=== PATIENT | female | born 1970 | race American Indian/Alaskan Native ===

== ENCOUNTER 2017-06-28 01:19 | Emergency (ER) | payer SELFPAY ==
[2017-06-28 01:32] VITALS: RESP 20; TEMP 98.5
[2017-06-28] MEDS ORDERED: Sodium Chloride 0.9% 500 ML IV ONE (01:56)
[2017-06-28] MEDS ORDERED: Sodium Chloride 0.9% 1,000 ML ONE (02:06)
[2017-06-28 02:51] LABS: BASO # 0.1 K/uL (0.0-0.2); BASO % 0.8 % (0.0-2.0); EOS # 0.1 K/uL (0.0-0.7); HEMATOCRIT 36.3 % (34.0-47.0); LYMPH # 1.1 K/uL (1.0-4.3); LYMPH % 14.3 % (20.0-40.0); MEAN CELL VOLUME 82.7 fL (81.0-99.0); MEAN CORPUSCULAR HEMOGLOBIN 27.4 pg (27.0-31.0); MEAN CORPUSCULAR HGB CONC 33.2 g/dL (33.0-37.0); MEAN PLATELET VOLUME 7.8 fL (7.2-11.7); MONO # 0.6 K/uL (0.0-0.8); MONO % 8.7 % (0.0-10.0); RED CELL DISTRIBUTION WIDTH 13.1 % (11.5-14.5); WHITE BLOOD COUNT 7.5 K/uL (4.8-10.8)
[2017-06-28 03:00] LABS: CHLORIDE 101 mmol/L (98-107); POTASSIUM 3.1 mmol/L (3.6-5.2); SODIUM 137 mmol/L (132-148)
[2017-06-28 03:03] LABS: ALB/GLOB RATIO 1.1 (1.0-2.1); ALKALINE PHOSPHATASE 69 U/L (38-126); ALT/SGPT 62 U/L (9-52); AST/SGOT 47 U/L (14-36); BILIRUBIN,TOTAL 0.5 mg/dL (0.2-1.3); BLOOD UREA NITROGEN 6 mg/dL (7-17); CALCIUM 8.6 mg/dl (8.6-10.4); CARBON DIOXIDE 22 mmol/L (22-30); GFR AFRICAN-AMERICAN > 60; GLUCOSE,RANDOM 182 mg/dL (65-105); TOTAL PROTEIN 7.5 g/dL (6.3-8.3)
[2017-06-28] MEDS ORDERED: Potassium Chloride 20 mEq ER Tab PO STA (03:20)
--- NOTE | 2017-06-28 03:38 | C.PDOC ---
History Of Present Illness 47 y/o female presents to the ER with postprandial epigastric discomfort. Pt states that pain started after eating 2 sandwiches in the evening. Patient reports feeling nauseous and taking 1 tab of Omeprazole, but right after felt anxious with palpitations. Denies dizziness, chest pain, SOB, fever, chills, or any other complaints. Patient reports being on the road a lot and developed poor eating habit. Pt symptoms improved after 1 she had one bowel movement last night with improvements of pain. Time Seen by Provider: 06/28/17 01:36 Chief Complaint (Nursing): Palpitations History Per: Patient History/Exam Limitations: no limitations Onset/Duration Of Symptoms: Hrs (few hours [employer], last night) Current Symptoms Are (Timing): Still Present Context: Food Severity: Mild Location Of Pain/Discomfort: Epigastric Radiation Of Pain To:: None Quality Of Discomfort: "Pain" Associated Symptoms: Nausea. denies: Fever, Chills Alleviating Factors: Other (Bowel movement) Recent travel outside of the [place]: No Additional History Per: Patient Past Medical History Reviewed: Historical Data, Nursing Documentation, Vital Signs Vital Signs: Last Vital Signs Temp 98.5 F 06/28/17 05:15 Pulse 94 H 06/28/17 05:15 Resp 20 06/28/17 05:15 BP 119/74 06/28/17 05:15 Pulse Ox 100 06/28/17 05:23 - Medical History PMH: HTN Family History: States: Unknown Family Hx - Social History Hx Alcohol Use: No Hx Substance Use: No - Immunization History Hx Tetanus Toxoid Vaccination: No Hx Influenza Vaccination: No Hx Pneumococcal Vaccination: No Review Of Systems Except As Marked, All Systems Reviewed And Found Negative. Constitutional: Negative for: Fever, Chills Cardiovascular: Positive for: Palpitations. Negative for: Chest Pain Respiratory: Negative for: Shortness of Breath Gastrointestinal: Positive for: Nausea, Abdominal Pain Neurological: Negative for: Dizziness Psych: Positive for: Anxiety Physical Exam - Physical Exam Appears: Non-toxic, No Acute Distress Skin: Warm, Dry Cardiovascular: Rhythm Regular Respiratory: Normal Breath Sounds, No Rales, No Rhonchi, No Wheezing Gastrointestinal/Abdominal: Bowel Sounds (Normal), Soft, Tenderness (Minimal epigastric tenderness), No Guarding, No Rebound Back: Normal Inspection, No CVA Tenderness Neurological/Psych: Oriented x3 Gait: Steady ED Course And Treatment - Laboratory Results Result Diagrams: 06/28/17 02:20 06/28/17 02:20 ECG: Interpreted By Me, Viewed By Me ECG Rhythm: Sinus Rhythm ECG Interpretation: Normal Rate From EC O2 Sat by Pulse Oximetry: 100 (RA) Pulse Ox Interpretation: Normal - Other Rad XRAY Abdomen X-Ray: Interpreted by Me, Viewed By Me Interpretation: Some stool in the abdomen, otherwise normal. Progress Note: Plans: Blood work up, IV fluids, Pepcid, Zofran, XRAY abdomen. Labs reviewed, low K+ and potassium ordered. Patient is in no acute distress, Abd soft NT, pt with HR 103, and is tolerating PO. Patient is requesting to leave with her brother. Pt was instructed to follow up with PMD for further evaluations and to return if symptoms worsens. Disposition Counseled Patient/Family Regarding: Diagnosis, Need For Followup, Rx Given - Disposition Referrals: Swapnil English MD [Medical Doctor] - Disposition: HOME/ ROUTINE Disposition Time: 05:19 Condition: STABLE Additional Instructions: Avoid greasy, fried foods , caffeine, soda, alcohol Follow up with PMD High fiber diet Return to ER if worse Prescriptions: Docusate Sodium [Colace] 100 mg PO TID #30 capsule Ranitidine HCl [Zantac] 150 mg PO BID #30 tablet Instructions: Epigastric Pain (ED) Forms: [facility] (Spanish) - Clinical Impression Clinical Impression: Epigastric abdominal pain, Palpitations - Scribe Statement The provider has reviewed the documentation as recorded by the Scribandry romero All medical record entries made by the Scribe were at my direction and personally dictated by me. I have reviewed the chart and agree that the record accurately reflects my personal performance of the history, physical exam, medical decision making, and the department course for this patient. I have also personally directed, reviewed, and agree with the discharge instructions and disposition.
[2017-06-28] MEDS ORDERED: Potassium Chloride 20 mEq ER Tab PO ONE (03:58)
[2017-06-28 05:16] VITALS: BP 119/74; PULSE 94
[2017-06-28 05:17] VITALS: O2SAT 100
--- NOTE | 2017-06-28 08:24 | RAD ---
PROCEDURE: Radiographs of the chest and abdomen (obstructive series) HISTORY: abd pain COMPARISON: No prior. TECHNIQUE: AP radiograph of the chest, with upright and supine radiographs of the abdomen. FINDINGS: CHEST: Lungs: Clear. Cardiovascular: Normal size heart. No pulmonary vascular congestion. Pleura: No pleural fluid. No pneumothorax. Other findings: None. ABDOMEN AND PELVIS: Bowel: Unremarkable bowel gas pattern. No evidence of mechanical obstruction. Free air: None. Bones: Unremarkable. Other findings: Surgical clips identified in the right upper quadrant may indicate prior cholecystectomy. Clinically correlate. IMPRESSION: Unremarkable radiographs of chest. Surgical clips in the right upper quadrant may indicate prior cholecystectomy. Clinically correlate. . No evidence of mechanical bowel obstruction.
--- NOTE | 2017-06-28 12:17 | CARD ---
APPROVED REPORT EKG Measurement Heart [id number] <Conclusion> Sinus tachycardia Otherwise normal ECG
== END 2017-06-28 05:31 | disposition home or self-care (01) ==
LOC: C.ER 01:19
DX: R00.2 Palpitations (principal); R10.13 Epigastric pain
CPT/HCPCS: 74022; 80053; 83690; 84443; 85025; 93005; 96361; 96374; 96375; 99285; J2405; J7040

== ENCOUNTER 2017-07-11 02:41 | Emergency (ER) | payer SELFPAY ==
[2017-07-11 02:59] VITALS: RESP 20; TEMP 97.7; O2SAT 99
[2017-07-11] MEDS ORDERED: Sucralfate 1 gm/10 ml Oral Susp UD PO STA (03:10)
--- NOTE | 2017-07-11 03:16 | C.PDOC ---
History Of Present Illness 47 y/o female c/o epigastric discomfort and abdominal distention that began tonight. Denies definite pain, fever, chills, diarrhea, or vomiting. No chest pain or SOB. Patient notes having a similar episode 10 days ago and was given a prescription of Zantac, but has stop taking it. Time Seen by Provider: 07/11/17 03:15 Chief Complaint (Nursing): Abdominal Pain History Per: Patient History/Exam Limitations: no limitations Onset/Duration Of Symptoms: Hrs Current Symptoms Are (Timing): Still Present Severity: Mild Location Of Pain/Discomfort: Epigastric Radiation Of Pain To:: None Quality Of Discomfort: denies: "Pain" Associated Symptoms: denies: Fever, Chills, Vomiting, Diarrhea Exacerbating Factors: None Alleviating Factors: None Additional History Per: Patient Past Medical History Reviewed: Historical Data, Nursing Documentation, Vital Signs Vital Signs: Last Vital Signs Temp 97.7 F 07/11/17 02:52 Pulse 106 H 07/11/17 02:52 Resp 20 07/11/17 02:52 BP 147/74 07/11/17 02:52 Pulse Ox 99 07/11/17 03:19 - Medical History PMH: HTN Surgical History: Cholecystectomy Family History: States: Unknown Family Hx - Social History Hx Alcohol Use: No Hx Substance Use: No - Immunization History Hx Tetanus Toxoid Vaccination: No Hx Influenza Vaccination: No Hx Pneumococcal Vaccination: No Review Of Systems Except As Marked, All Systems Reviewed And Found Negative. Constitutional: Negative for: Fever, Chills Cardiovascular: Negative for: Chest Pain Respiratory: Negative for: Shortness of Breath Gastrointestinal: Positive for: Other (Epigastric discomfort and abdomen distention). Negative for: Vomiting, Abdominal Pain (No definite pain), Diarrhea Physical Exam - Physical Exam Appears: Non-toxic, No Acute Distress Skin: Warm, Dry Head: Atraumatic, Normacephalic Cardiovascular: Rhythm Regular, No Murmur Respiratory: Normal Breath Sounds, No Rales, No Rhonchi, No Wheezing Gastrointestinal/Abdominal: Soft, Tenderness (Mild epigastric tenderness), No Guarding, No Rebound Back: Normal Inspection, No CVA Tenderness Neurological/Psych: Oriented x3, Normal Speech, Normal Cognition Gait: Steady ED Course And Treatment - Laboratory Results Result Diagrams: 07/11/17 03:32 07/11/17 03:32 O2 Sat by Pulse Oximetry: 99 (RA) Pulse Ox Interpretation: Normal Medical Decision Making Medical Decision Making: Impression: * Epigastric discomfort and abdominal distention that began tonight. Plans: * Blood labs * IV fluids * UA * Bentyl * Pepcid * Carafate Disposition Counseled Patient/Family Regarding: Diagnosis - Disposition Referrals: [facility] [Outside] Disposition: HOME/ ROUTINE Disposition Time: 04:09 Condition: STABLE Prescriptions: Famotidine [Pepcid] 20 mg PO BID #30 tab Potassium Chloride [K-Tab ER] 10 meq PO DAILY #14 tablet.er Sucralfate [Carafate] 1 gm PO BID #14 tab Instructions: Gastritis (GEN), Diet for Ulcers and Gastritis (GEN), Hypokalemia (DC), Diabetic Hyperglycemia (ED) Forms: [facility] (Albanian) - POA Present On Arrival: None - Clinical Impression Clinical Impression: Epigastric discomfort, Gastritis, Hyperglycemia, Hypokalemia - Scribe Statement The provider has reviewed the documentation as recorded by the Ramilaibandry romero All medical record entries made by the Ramilaibandry were at my direction and personally dictated by me. I have reviewed the chart and agree that the record accurately reflects my personal performance of the history, physical exam, medical decision making, and the department course for this patient. I have also personally directed, reviewed, and agree with the discharge instructions and disposition.
[2017-07-11 03:20] LABS: RBC URINE < 1 /hpf (0-3); URINE BILIRUBIN NEGATIVE (NEGATIVE); URINE BLOOD NEGATIVE (NEGATIVE); URINE COLOR Yellow (YELLOW); URINE GLUCOSE (UA) 3+ mg/dL (Normal); URINE KETONE NEGATIVE (NEGATIVE); URINE LEUKOCYTE ESTERASE NEG Leu/uL (Negative); URINE PROTEIN NEGATIVE (NEGATIVE); URINE UROBILINOGEN NORMAL mg/dL (0.2-1.0)
[2017-07-11 03:38] LABS: BASO % 0.6 % (0.0-2.0); EOS % 0.7 % (0.0-4.0); HEMATOCRIT 34.9 % (34.0-47.0); LYMPH # 0.9 K/uL (1.0-4.3); LYMPH % 13.5 % (20.0-40.0); MEAN CELL VOLUME 83.3 fL (81.0-99.0); MEAN CORPUSCULAR HEMOGLOBIN 28.1 pg (27.0-31.0); MEAN CORPUSCULAR HGB CONC 33.7 g/dL (33.0-37.0); MEAN PLATELET VOLUME 7.9 fL (7.2-11.7); MONO # 0.5 K/uL (0.0-0.8); MONO % 6.7 % (0.0-10.0); NRBC % 0.1 % (0.0-2.0); RED CELL DISTRIBUTION WIDTH 13.2 % (11.5-14.5); WHITE BLOOD COUNT 6.8 K/uL (4.8-10.8)
[2017-07-11 03:56] LABS: CHLORIDE 95 mmol/L (98-107); POTASSIUM 2.9 mmol/L (3.6-5.2); SODIUM 134 mmol/L (132-148)
[2017-07-11 03:58] LABS: AST/SGOT 46 U/L (14-36); BILIRUBIN,TOTAL 0.3 mg/dL (0.2-1.3); CARBON DIOXIDE 24 mmol/L (22-30); GFR AFRICAN-AMERICAN > 60
[2017-07-11 03:59] LABS: ALKALINE PHOSPHATASE 61 U/L (38-126); ALT/SGPT 63 U/L (9-52); BLOOD UREA NITROGEN 8 mg/dL (7-17); CALCIUM 8.6 mg/dl (8.6-10.4); GLUCOSE,RANDOM 244 mg/dL (65-105); TOTAL PROTEIN 7.2 g/dL (6.3-8.3)
[2017-07-11] MEDS ORDERED: Potassium Chloride 20 mEq ER Tab PO STA (04:07)
[2017-07-11] MEDS ORDERED: Potassium Chloride 20 mEq ER Tab PO ONE (04:12)
[2017-07-11 04:29] VITALS: BP 132/78; PULSE 85
== END 2017-07-11 04:29 | disposition home or self-care (01) ==
LOC: C.ER 02:41
DX: K29.70 Gastritis, unspecified, without bleeding (principal); R73.9 Hyperglycemia, unspecified; E87.6 Hypokalemia; R10.13 Epigastric pain
CPT/HCPCS: 80053; 81001; 83690; 84703; 85025; 96372; 96374; 99284; J0500

== ENCOUNTER 2017-09-09 09:48 | Day surgery (SDC) | payer OTHER ==
[2017-08-08 11:55] VITALS: BMI 34.3
[2017-09-09 10:28] VITALS: RESP 18; O2SAT 100
--- NOTE | 2017-09-09 11:54 | CP.SDSHP ---
Same Day Surgery H & P - History Proposed Procedure: US guided FNA of left thyroid nodule Pre-Op Diagnosis: Thyroid nodule - Allergies Allergies: Allergies No Known Allergies Allergy (Verified 07/11/17 02:59) - Physical Exam Vital Signs: Vital Signs 09/09/17 10:17 Temperature 98.1 F Pulse Rate 90 Respiratory 18 Rate Blood Pressure 152/90 H O2 Sat by Pulse 100 Oximetry Mental Status: Alert & Oriented x3 Neuro: WNL Heart: WNL Lungs: WNL - Impression Impression: Pt with a 1.4 cm left thyroid nodule. Plan US guided FNA. Pt. Evaluated Today:Candidate for Anesthesia & Procedure: No Short Stay Discharge - Short Stay Discharge Admitting Diagnosis/Reason for Visit: THYROID NODULE Disposition: HOME/ ROUTINE
--- NOTE | 2017-09-09 11:55 | PCM.SURG1 ---
Surgeon's Initial Post Op Note - Surgeon's Notes Surgeon: Shilo Palacios MD Lead Based Paint Technician: NONE Type of Anesthesia: Local Pre-Operative Diagnosis: left thyroid nodule Operative Findings: US shows a 1.4 cm left thyroid nodule Post-Operative Diagnosis: left thyroid nodule Operation Performed: US guided FNA Specimen/Specimens Removed: 25 g FNA x 4 passes Estimated Blood Loss: EBL {In ML}: 0 Blood Products Given: N/A Drains Used: No Drains Post-Op Condition: Good Date of Surgery/Procedure: 09/09/17 Time of Surgery/Procedure: 11:50
[2017-09-09 12:15] VITALS: BP 134/70; PULSE 74; TEMP 98
--- NOTE | 2017-09-10 12:26 | US ---
PROCEDURE: Date of Procedure: 09/09/2017 PROCEDURE: 1. Ultrasound guided FNA of left thyroid nodule, CPT 71417 2. Ultrasound guidance for FNA, [address]4614 Medications: 1% Lidocaine HISTORY: Enlarged left thyroid nodule. TECHNIQUE: Following informed consent and procedure time-out, a limited ultrasound patient's neck confirmed the presence of a 1.4 cmleft thyroid nodule which is predominantly cystic. After the patient's neck was prepped and draped in the usual sterile fashion, the skin was anesthetized with 1% lidocaine. Ultrasound-guided fine needle aspiration was then performed of the dominant left thyroid nodule. A total of 4 passes were made into the nodule with 25 gauge needle under ultrasound guidance. The FNA specimen was sent for routine pathology. Post biopsy ultrasound showed no hematoma. IMPRESSION: Ultrasound-guided FNA of the dominant left thyroid nodule.
== END 2017-09-09 12:28 | disposition home or self-care (01) ==
LOC: C.SPRAD 09:48
PROVIDERS: ATTEND Radiology Vascular & Interventional Radiology
DX: E04.1 Nontoxic single thyroid nodule (principal)

== ENCOUNTER 2018-11-13 09:55 | Outpatient (CLI) | payer OTHER | END 2018-11-13 09:56 | disposition home or self-care (01) | LOC: C.MAMMO 09:56 ==